=== PATIENT | male | born 1960 | race Two or more races ===

== ENCOUNTER 2023-04-14 19:37 | Inpatient (IN) | payer MEDICAID, OTHER ==
[~2023-04-14] VITALS: Ht 177.8 cm; Wt 81.6 kg
[2023-04-14] MEDS: IPRATROPIUM NEB FS 0.5 MG/2.5 ML AMPUL.NEB NEB ONE ×2 (19:57→20:26)
[2023-04-14] MEDS: ALBUTEROL FS 2.5 MG/3 ML VIAL.NEB CONTNEB ONE ×2 (19:57→20:26)
[2023-04-14] MEDS ORDERED: IV NS 0.9% 1,000 ML BAG IV ONE ×2 (20:00→21:00)
[2023-04-14] MEDS ORDERED: VANCOMYCIN 1 GM in IV D5W 250 ML IV ONE (20:00)
[2023-04-14] MEDS ORDERED: methylPREDNISolone SOD SUCC 125 MG/2ML VIAL IV ONE (20:00)
[2023-04-14] MEDS ORDERED: PIPERACILLIN /TAZOBACTAM 3.375 G in IV D5W 50 ML IV ONE (20:00)
[2023-04-14] MEDS ORDERED: methylPREDNISolone SOD SUCC 125 MG/2ML VIAL ONE (20:00)
[2023-04-14] MEDS ORDERED: VANCOMYCIN 1 GM /D5W 250 ML PB IV ONE (20:01)
[2023-04-14] MEDS ORDERED: PIPERACI/TAZO 3.375GM/D5W 50ML PB IV ONE (20:01)
[2023-04-14 20:16] LABS: ABG BASE EXCESS 5.9 mmol/L; ABG OXYGEN SATURATION 84.7 % (92.0-98.5); ABG PCO2 44.5 mmHg (35.0-45.0); ABG PH 7.455 (7.350-7.450); ABG PO2 50.8 mmHg (75.0-100.0); ABG TOTAL HEMOGLOBIN 12.2 G/dL (13.5-18.0); AaDO2 609.3 mmHg; COHb 0.4 % (0.5-1.5); MetHb 0.2 % (0.0-1.5); O2Hb 84.2 % (94.0-97.0); SITE, ABG Right Radial
[2023-04-14] MEDS ORDERED: ALBUTEROL FS 2.5 MG/3 ML VIAL.NEB ONE (20:20)
[2023-04-14] MEDS ORDERED: IPRATROPIUM NEB FS 0.5 MG/2.5 ML AMPUL.NEB ONE (20:20)
[2023-04-14 20:25] VITALS: O2SAT 81
[2023-04-14] MEDS ORDERED: ACETAMINOPHEN 650 MG/SUPP.RECT RC ONE ×2 (20:30→20:32)
[2023-04-14 20:36] LABS: BASOPHILS % (AUTO) 0.2 % (0.0-2.0); HEMATOCRIT 34 % (39-51); HEMOGLOBIN 11.2 g/dL (13.5-17.5); LYMPHOCYTES # (AUTO) 0.7 K/uL (0.8-4.8); LYMPHOCYTES % (AUTO) 9.1 % (20.0-44.0); MEAN CORPUSCULAR HEMOGLOBIN 32 PG (26.0-33.0); MEAN CORPUSCULAR HGB CONC 33 g/dl (31.0-36.0); MEAN CORPUSCULAR VOLUME 96 fL (80-96); MONOCYTES # (AUTO) 0.7 K/uL (0.1-1.30); MONOCYTES % (AUTO) 8.2 % (2.0-12.0); NEUTROPHILS # (AUTO) 6.6 K/uL (1.8-8.9); NEUTROPHILS % (AUTO) 82.5 % (43.0-81.0); PLATELET COUNT (AUTO) 185 K/uL (150-450); RED BLOOD CELL COUNT(AUTO) 3.52 MIL/uL (4.5-6.0); RED CELL DISTRIBUTION WIDTH 14.6 % (11.5-15.0)
[2023-04-14 20:38] LABS: APPEARANCE,URINE CLEAR (CLEAR); BILIRUBIN,URINE NEGATIVE (NEGATIVE); BLOOD, URINE NEGATIVE Ery/uL (NEGATIVE); COLOR,URINE ORANGE (YELLOW); KETONES,URINE NEGATIVE (NEGATIVE); LEUKOCYTE ESTERASE ,URINE NEGATIVE (NEGATIVE); NITRITE, URINE NEGATIVE (NEGATIVE); PH,URINE 6.5 (5.0-8.0); PROTEIN,URINE TRACE mg/dl (NEGATIVE); UGLUCOSE NEGATIVE (NEGATIVE)
[2023-04-14 20:51] LABS: INR 1.19 (0.91-1.10); PARTIAL THROMBOPLASTIN TIME 28.1 SEC (24.3-34.3); PROTHROMBIN TIME 12.4 SECS (9.2-11.1)
[2023-04-14 20:55] LABS: CALCIUM, SERUM 8.5 mg/dL (8.5-10.1); CARBON DIOXIDE 29 mmol/L (21-32); CHLORIDE 100 mmol/L (98-107); CREATININE 0.6 mg/dL (0.6-1.3); GLUCOSE 128 mg/dL (74-106); POTASSIUM 4.3 mmol/L (3.5-5.1); SODIUM SERUM 135 mmol/L (136-145); UREA NITROGEN, BLOOD 16 mg/dL (7-18)
[2023-04-14 20:58] LABS: ADD URINE CULTURE NO; BACTERIA,URINE None seen /HPF (None Seen); MUCUS,URINE Moderate /LPF (None Seen); RBC,URINE NONE SEEN /HPF (0-2); SQUAMOUS EPITHELIAL CELL,UR 0-2 /HPF (None Seen); WBC,URINE NONE SEEN /HPF (0-3)
[2023-04-14 21:02] LABS: ALANINE AMINOTRANSFERASE 35 U/L (12-78); ALBUMIN 1.6 g/dL (3.4-5.0); ALKALINE PHOSPHATASE 106 U/L (46-116); ASPARTATE AMINOTRANSFERASE 42 U/L (15-37); BILIRUBIN,DIRECT 0.3 mg/dL (0.0-0.2); BILIRUBIN,TOTAL 0.7 mg/dL (0.2-1.0); TOTAL PROTEIN, SERUM 8.6 g/dL (6.4-8.2)
[2023-04-14 21:05] LABS: LACTIC ACID 1.5 mmol/L (0.4-2.0)
[2023-04-14 21:25] VITALS: O2SAT 95
[2023-04-14 22:23] LABS: ABG BASE EXCESS 3.6 mmol/L; ABG OXYGEN SATURATION 96.4 % (92.0-98.5); ABG PCO2 55.7 mmHg (35.0-45.0); ABG PH 7.353 (7.350-7.450); COHb 0.3 % (0.5-1.5); MetHb 0.5 % (0.0-1.5); O2Hb 95.6 % (94.0-97.0); SITE, ABG Right Radial
[2023-04-14] MEDS ORDERED: ONDANSETRON HCL/PF 4 MG/2 ML VIAL IVP PRN (23:30)
[2023-04-14] MEDS ORDERED: ACETAMINOPHEN 325 MG TABLET PO PRN (23:30)
[2023-04-14] MEDS ORDERED: ACETAMINOPHEN 650 MG/SUPP.RECT RC PRN (23:30)
[2023-04-15] VITALS (14 sets, daily range): BP systolic 98–115; BP diastolic 57–72; TEMP 97.7–98.2; O2SAT 87–99
[2023-04-15] MEDS: ENOXAPARIN SODIUM 40 MG/0.4 ML DISP.SYRIN SQ SCH ×2 (00:30→21:28)
[2023-04-15] MEDS: IV NS 0.9% 1,000 ML IV PRN (00:31)
[2023-04-15] MEDS: ALBUTEROL HALF STRENGTH 1.25 MG/3 ML VIAL.NEB NEB SCH ×6 (00:41→20:06)
[2023-04-15] MEDS: IPRATROPIUM NEB FS 0.5 MG/2.5 ML AMPUL.NEB NEB SCH ×6 (00:41→20:06)
[2023-04-15] MEDS ORDERED: ZOSYN IVPB 3.375 G in IV D5W 50ml IV ONE (03:00)
[2023-04-15] MEDS ORDERED: PIPERACI/TAZO 3.375GM/D5W 50ML PB IV ONE (03:42)
[2023-04-15] MEDS ORDERED: methylPREDNISolone SOD SUCC 40 MG/ML VIAL ONE (04:54)
[2023-04-15] MEDS: methylPREDNISolone SOD SUCC 40 MG/ML VIAL IV SCH ×3 (04:57→21:25)
[2023-04-15 07:04] LABS: BASOPHILS % (AUTO) 0.1 % (0.0-2.0); HEMATOCRIT 32 % (39-51); HEMOGLOBIN 10.4 g/dL (13.5-17.5); LYMPHOCYTES # (AUTO) 0.5 K/uL (0.8-4.8); LYMPHOCYTES % (AUTO) 9.6 % (20.0-44.0); MEAN CORPUSCULAR HEMOGLOBIN 32 PG (26.0-33.0); MEAN CORPUSCULAR HGB CONC 33 g/dl (31.0-36.0); MEAN CORPUSCULAR VOLUME 99 fL (80-96); MONOCYTES # (AUTO) 0.1 K/uL (0.1-1.30); MONOCYTES % (AUTO) 1.9 % (2.0-12.0); NEUTROPHILS # (AUTO) 4.3 K/uL (1.8-8.9); NEUTROPHILS % (AUTO) 88.4 % (43.0-81.0); PLATELET COUNT (AUTO) 151 K/uL (150-450); RED BLOOD CELL COUNT(AUTO) 3.21 MIL/uL (4.5-6.0); RED CELL DISTRIBUTION WIDTH 14.6 % (11.5-15.0); WHITE BLOOD COUNT (AUTO) 4.8 K/uL (4.3-11.0)
[2023-04-15 07:38] LABS: CALCIUM, SERUM 8.6 mg/dL (8.5-10.1); CREATININE 0.5 mg/dL (0.6-1.3); MAGNESIUM 2.5 mg/dL (1.8-2.4); PHOSPHORUS 4.4 mg/dL (2.5-4.9); POTASSIUM 4.1 mmol/L (3.5-5.1)
[2023-04-15] MEDS ORDERED: LIDO700A30 TP (08:03)
[2023-04-15] MEDS ORDERED: HYDR-4075 GT (08:03)
[2023-04-15] MEDS ORDERED: SENN-261 GT (08:03)
[2023-04-15] MEDS ORDERED: MAGN400O6 GT (08:03)
[2023-04-15] MEDS ORDERED: BISA10SU11 RC (08:03)
[2023-04-15] MEDS ORDERED: AMOX1TAB16 GT (08:03)
[2023-04-15] MEDS ORDERED: GABA-532 GT (08:03)
[2023-04-15] MEDS ORDERED: ACET-2605 GT (08:03)
[2023-04-15] MEDS ORDERED: FURO40TA5 GT (08:03)
[2023-04-15] MEDS ORDERED: MULT-447 GT (08:03)
[2023-04-15] MEDS ORDERED: RISP0.2515 GT (08:03)
[2023-04-15] MEDS ORDERED: ACET-868 GT (08:03)
[2023-04-15] MEDS ORDERED: LACT-96 GT (08:03)
[2023-04-15] MEDS ORDERED: ASPI-1169 GT (08:03)
[2023-04-15] MEDS ORDERED: NA P133E RC (08:03)
[2023-04-15] MEDS ORDERED: HEPA50007 SQ (08:03)
[2023-04-15] MEDS: VANCOMYCIN 0.75 GM in IV D5W 250 ML IV SCH ×3 (08:34→23:53)
[2023-04-15] MEDS: PIPERACILLIN /TAZOBACTAM 3.375 G in IV D5W 100 ML IV SCH ×2 (10:27→18:32)
[2023-04-15] MEDS ORDERED: NA PHOS,M-B/NA PHOS,DI-BA 1 EA ENEMA RC PRN (12:00)
[2023-04-15] MEDS: JEVITY 1.2 CAL 1,000 ML BOTTLE GT PRN ×2 (15:29→16:00)
[2023-04-15] MEDS: GABAPENTIN 100 MG CAPSULE GT SCH (16:34)
[2023-04-15] MEDS: FUROSEMIDE 40 MG TABLET GT SCH (16:34)
[2023-04-15] MEDS: risperiDONE 1 MG TABLET PO SCH (16:34)
[2023-04-16] VITALS (18 sets, daily range): BP systolic 98–113; BP diastolic 57–78; TEMP 96.9–98.5; O2SAT 93–100
[2023-04-16] MEDS: IPRATROPIUM NEB FS 0.5 MG/2.5 ML AMPUL.NEB NEB SCH ×6 (01:06→20:30)
[2023-04-16] MEDS: ALBUTEROL HALF STRENGTH 1.25 MG/3 ML VIAL.NEB NEB SCH ×6 (01:06→20:30)
[2023-04-16] MEDS ORDERED: IV NS 0.9% 250 ML IV PRN (02:00)
[2023-04-16] MEDS: PIPERACILLIN /TAZOBACTAM 3.375 G in IV D5W 100 ML IV SCH ×3 (02:15→17:24)
[2023-04-16] MEDS: methylPREDNISolone SOD SUCC 40 MG/ML VIAL IV SCH ×3 (05:20→21:02)
[2023-04-16 07:16] LABS: CREATININE 0.6 mg/dL (0.6-1.3); POTASSIUM 3.8 mmol/L (3.5-5.1)
[2023-04-16] MEDS: IV NS 0.9% 1,000 ML IV PRN (09:00)
[2023-04-16] MEDS: VANCOMYCIN 0.75 GM in IV D5W 250 ML IV SCH ×2 (09:00→15:36)
[2023-04-16] MEDS: risperiDONE 1 MG TABLET PO SCH ×2 (09:11→16:18)
[2023-04-16] MEDS: FUROSEMIDE 40 MG TABLET GT SCH ×2 (09:11→16:18)
[2023-04-16] MEDS: GABAPENTIN 100 MG CAPSULE GT SCH ×2 (09:11→16:18)
[2023-04-16] MEDS: ASPIRIN 81 MG TAB.CHEW GT SCH (09:11)
[2023-04-16] MEDS: PROSOURCE / PROSTAT (PYXIS) 30 ML UDC GT SCH (09:13)
[2023-04-16] MEDS: JEVITY 1.2 CAL 1,000 ML BOTTLE GT PRN (13:41)
[2023-04-16] MEDS: MUPIROCIN OINT 2% 22 GM TUBE NS SCH (21:02)
[2023-04-16] MEDS: ENOXAPARIN SODIUM 40 MG/0.4 ML DISP.SYRIN SQ SCH (21:03)
[2023-04-17] VITALS (18 sets, daily range): BP systolic 92–130; BP diastolic 55–67; TEMP 97.1–98.5; O2SAT 93–100
[2023-04-17] MEDS: IPRATROPIUM NEB FS 0.5 MG/2.5 ML AMPUL.NEB NEB SCH ×6 (00:04→20:03)
[2023-04-17] MEDS: ALBUTEROL HALF STRENGTH 1.25 MG/3 ML VIAL.NEB NEB SCH ×6 (00:04→20:03)
[2023-04-17] MEDS: VANCOMYCIN 0.75 GM in IV D5W 250 ML IV SCH ×4 (00:22→23:54)
[2023-04-17] MEDS: IV NS 0.9% 1,000 ML IV PRN ×2 (00:23→23:59)
[2023-04-17] MEDS: PIPERACILLIN /TAZOBACTAM 3.375 G in IV D5W 100 ML IV SCH ×3 (02:18→17:38)
[2023-04-17 06:28] LABS: CALCIUM, SERUM 8.4 mg/dL (8.5-10.1); CREATININE 0.5 mg/dL (0.6-1.3); POTASSIUM 3.1 mmol/L (3.5-5.1)
[2023-04-17] MEDS: methylPREDNISolone SOD SUCC 40 MG/ML VIAL IV SCH (09:00)
[2023-04-17] MEDS: FUROSEMIDE 40 MG TABLET GT SCH ×2 (09:01→17:22)
[2023-04-17] MEDS: risperiDONE 1 MG TABLET PO SCH ×2 (09:01→17:22)
[2023-04-17] MEDS: ASPIRIN 81 MG TAB.CHEW GT SCH (09:01)
[2023-04-17] MEDS: GABAPENTIN 100 MG CAPSULE GT SCH ×2 (09:01→17:22)
[2023-04-17] MEDS: PROSOURCE / PROSTAT (PYXIS) 30 ML UDC GT SCH (09:04)
[2023-04-17] MEDS: JEVITY 1.2 CAL 1,000 ML BOTTLE GT PRN (09:06)
[2023-04-17] MEDS: MUPIROCIN OINT 2% 22 GM TUBE NS SCH ×2 (09:06→21:09)
[2023-04-17] MEDS ORDERED: methylPREDNISolone SOD SUCC 40 MG/ML VIAL IV SCH (09:30)
[2023-04-17] MEDS ORDERED: POTASSIUM CHLORIDE 20 MEQ POWDER PACKET GT ONE (10:00)
[2023-04-17] MEDS: ENOXAPARIN SODIUM 40 MG/0.4 ML DISP.SYRIN SQ SCH (21:07)
[2023-04-18] VITALS (10 sets, daily range): BP systolic 107–115; BP diastolic 61–69; TEMP 98.2–98.4; O2SAT 95–98
[2023-04-18] MEDS: ALBUTEROL HALF STRENGTH 1.25 MG/3 ML VIAL.NEB NEB SCH ×4 (00:04→12:23)
[2023-04-18] MEDS: IPRATROPIUM NEB FS 0.5 MG/2.5 ML AMPUL.NEB NEB SCH ×4 (00:04→12:23)
[2023-04-18] MEDS: PIPERACILLIN /TAZOBACTAM 3.375 G in IV D5W 100 ML IV SCH ×2 (02:16→09:43)
[2023-04-18 06:19] LABS: CALCIUM, SERUM 8.6 mg/dL (8.5-10.1); CREATININE 0.6 mg/dL (0.6-1.3); POTASSIUM 3.4 mmol/L (3.5-5.1)
[2023-04-18] MEDS: VANCOMYCIN 0.75 GM in IV D5W 250 ML IV SCH (08:03)
[2023-04-18] MEDS: MUPIROCIN OINT 2% 22 GM TUBE NS SCH (08:19)
[2023-04-18] MEDS: PROSOURCE / PROSTAT (PYXIS) 30 ML UDC GT SCH (08:19)
[2023-04-18] MEDS: GABAPENTIN 100 MG CAPSULE GT SCH (08:26)
[2023-04-18] MEDS: FUROSEMIDE 40 MG TABLET GT SCH (08:26)
[2023-04-18] MEDS: risperiDONE 1 MG TABLET PO SCH (08:26)
[2023-04-18] MEDS: ASPIRIN 81 MG TAB.CHEW GT SCH (08:27)
[2023-04-18] MEDS ORDERED: predniSONE 20 MG TABLET GT SCH (09:00)
[2023-04-18] MEDS ORDERED: PRED20TA GT (09:37)
[2023-04-18] MEDS ORDERED: LEVO750T46 PO (09:37)
[2023-04-18] MEDS ORDERED: POTASSIUM CHLORIDE 20 MEQ POWDER PACKET NG SCH (11:00)
== END 2023-04-18 13:51 | DRG 720 ==
LOC: ER 19:39 → TELE-TD 23:13 → TELE1 04-15 07:12 → TELE-TD 04-15 13:35 → TELE1 04-16 13:18
PROVIDERS: ADMIT Nurse Practitioner Acute Care; ATTEND Internal Medicine
DX: A41.9 Sepsis, unspecified organism (principal); J69.0 Pneumonitis due to inhalation of food and vomit; G93.41 Metabolic encephalopathy; E43 Unspecified severe protein-calorie malnutrition; J15.6 Pneumonia due to other Gram-negative bacteria; J96.01 Acute respiratory failure with hypoxia; J96.02 Acute respiratory failure with hypercapnia; R53.2 Functional quadriplegia; D68.69 Other thrombophilia; J44.0 Chronic obstructive pulmonary disease with (acute) lower respiratory infection; J44.1 Chronic obstructive pulmonary disease with (acute) exacerbation; D64.9 Anemia, unspecified; E66.9 Obesity, unspecified; E87.1 Hypo-osmolality and hyponatremia; E88.09 Other disorders of plasma-protein metabolism, not elsewhere classified; F20.9 Schizophrenia, unspecified; I10 Essential (primary) hypertension; R13.10 Dysphagia, unspecified; R65.20 Severe sepsis without septic shock; Z93.1 Gastrostomy status; Z22.322 Carrier or suspected carrier of Methicillin resistant Staphylococcus aureus; Z20.822 Contact with and (suspected) exposure to COVID-19
CPT/HCPCS: 31720; 36415; 36600; 70450-TC; 71045-TC; 80048-TC; 80061-TC; 80076-TC; 80202-TC; 81001; 82803-TC; 83605-TC; 83735-TC; 84100-TC; 84484-TC; 85025-TC; 85730-TC; 87040-TC; 87081-TC; 87086-TC; 94762-TC; 94799-TC; A4223; C9803; G0378; J1650; J2543; J2920; J2930; J3370; J7030; J7050; J7060

== ENCOUNTER 2023-04-20 20:41 | Inpatient (IN) | payer MEDICAID ==
[~2023-04-20] VITALS: Ht 182.9 cm; Wt 69.9 kg
[~2023-04-20 20:41] MED LIST: ACET-2605 GT; ACET-868 GT; ASPI-1169 GT; BISA10SU11 RC; FURO40TA5 GT; GABA-532 GT; HEPA50007 SQ; HYDR-4075 GT; LACT-96 GT; LEVO750T46 PO; LIDO700A30 TP; MAGN400O6 GT; MULT-447 GT; NA P133E RC; PRED20TA GT; RISP0.2515 GT; SENN-261 GT
[2023-04-20] MEDS ORDERED: VANCOMYCIN 1 GM in IV D5W 250 ML IV ONE (21:00)
[2023-04-20] MEDS ORDERED: IV LR 1000 ML 1,000 ML BAG IV ONE (21:00)
[2023-04-20] MEDS ORDERED: CEFTRIAXONE 1GM BAG (ER ONLY) 1 GM/50 ML PIGGYBACK IV ONE (21:00)
[2023-04-20 21:10] LABS: BASOPHILS # (AUTO) 0.1 K/uL (0.0-0.2); BASOPHILS % (AUTO) 0.5 % (0.0-2.0); EOSINOPHILS # (AUTO) 0.1 K/uL (0.0-0.7); EOSINOPHILS % (AUTO) 0.5 % (0.0-6.0); HEMATOCRIT 42 % (39-51); HEMOGLOBIN 14.1 g/dL (13.5-17.5); LYMPHOCYTES # (AUTO) 1.2 K/uL (0.8-4.8); LYMPHOCYTES % (AUTO) 9.6 % (20.0-44.0); MEAN CORPUSCULAR HEMOGLOBIN 33 PG (26.0-33.0); MEAN CORPUSCULAR HGB CONC 34 g/dl (31.0-36.0); MEAN CORPUSCULAR VOLUME 98 fL (80-96); MONOCYTES # (AUTO) 0.3 K/uL (0.1-1.30); MONOCYTES % (AUTO) 2.3 % (2.0-12.0); NEUTROPHILS # (AUTO) 10.6 K/uL (1.8-8.9); NEUTROPHILS % (AUTO) 87.1 % (43.0-81.0); PLATELET COUNT (AUTO) 302 K/uL (150-450); RED CELL DISTRIBUTION WIDTH 15.3 % (11.5-15.0); WHITE BLOOD COUNT (AUTO) 12.2 K/uL (4.3-11.0)
[2023-04-20] MEDS ORDERED: VANCOMYCIN 1 GM /D5W 250 ML PB IV ONE (21:18)
[2023-04-20] MEDS ORDERED: CEFTRIAXONE 1 G VIAL ONE (21:19)
[2023-04-20 21:25] LABS: CALCIUM, SERUM 8.7 mg/dL (8.5-10.1); CARBON DIOXIDE 29 mmol/L (21-32); CHLORIDE 101 mmol/L (98-107); CREATININE 0.7 mg/dL (0.6-1.3); GLUCOSE 131 mg/dL (74-106); POTASSIUM 4.2 mmol/L (3.5-5.1); SODIUM SERUM 135 mmol/L (136-145); UREA NITROGEN, BLOOD 18 mg/dL (7-18)
[2023-04-20 21:31] LABS: INR 1.21 (0.91-1.10); PARTIAL THROMBOPLASTIN TIME 27.9 SEC (24.3-34.3); PROTHROMBIN TIME 12.6 SECS (9.2-11.1)
[2023-04-20 21:37] LABS: ALANINE AMINOTRANSFERASE 104 U/L (12-78); ALBUMIN 1.9 g/dL (3.4-5.0); ALKALINE PHOSPHATASE 124 U/L (46-116); ASPARTATE AMINOTRANSFERASE 46 U/L (15-37); BILIRUBIN,DIRECT 0.2 mg/dL (0.0-0.2); BILIRUBIN,TOTAL 0.6 mg/dL (0.2-1.0); NT-PRO BNP 212 pg/mL (0-125)
[2023-04-20] MEDS ORDERED: IOHEXOL-350 100 ML VIAL IV ONE (21:47)
[2023-04-20] MEDS ORDERED: IV NS 0.9% 250 ML IV ONE (21:47)
[2023-04-20] MEDS ORDERED: MIDAZOLAM 50 MG/10 ML VIAL ONE (21:58)
[2023-04-20] MEDS ORDERED: MIDAZOLAM HCL 100 MG in IV NS 0.9% 80 ML IV PRN (22:00)
[2023-04-20] MEDS ORDERED: ETOMIDATE 2 MG/ML VIAL IV ONE (22:00)
[2023-04-20] MEDS ORDERED: SUCCINYLCHOLINE CHLORIDE 20 MG/ML VIAL IV ONE (22:00)
[2023-04-20] MEDS ORDERED: FENTANYL CITRAT IV 2,500 MCG in IV NS 0.9% 200 ML IV PRN (22:00)
[2023-04-20 22:18] LABS: ABG BASE EXCESS 3.7 mmol/L; ABG OXYGEN SATURATION 97.1 % (92.0-98.5); ABG PCO2 40.3 mmHg (35.0-45.0); ABG PH 7.457 (7.350-7.450); ABG PO2 95.1 mmHg (75.0-100.0); ABG TOTAL HEMOGLOBIN 14.1 G/dL (13.5-18.0); COHb 0.3 % (0.5-1.5); MetHb 0.4 % (0.0-1.5); O2Hb 96.4 % (94.0-97.0); PEEP,BG 5 cm H2O; SITE, ABG Right Radial; VENT MODE, BG AC 20 500 100% +5; VT, ABG 500 mL
[2023-04-20 22:23] LABS: APPEARANCE,URINE CLEAR (CLEAR); BILIRUBIN,URINE NEGATIVE (NEGATIVE); BLOOD, URINE NEGATIVE Ery/uL (NEGATIVE); COLOR,URINE YELLOW (YELLOW); KETONES,URINE NEGATIVE (NEGATIVE); LEUKOCYTE ESTERASE ,URINE NEGATIVE (NEGATIVE); NITRITE, URINE NEGATIVE (NEGATIVE); PROTEIN,URINE NEGATIVE (NEGATIVE); UGLUCOSE NEGATIVE (NEGATIVE)
[2023-04-20] MEDS ORDERED: JEVITY 1.2 CAL 1,000 ML BOTTLE GT PRN (23:30)
[2023-04-20] MEDS ORDERED: ONDANSETRON HCL/PF 4 MG/2 ML VIAL IVP PRN (23:30)
[2023-04-20] MEDS ORDERED: IV NS 0.9% 1,000 ML IV PRN (23:30)
[2023-04-20] MEDS ORDERED: ACETAMINOPHEN 325 MG TABLET PO PRN (23:30)
[2023-04-20] MEDS ORDERED: hydrALAZINE HCL 10 MG TABLET GT PRN (23:30)
[2023-04-21] VITALS (38 sets, daily range): BP systolic 82–122; BP diastolic 61–90; TEMP 97.9–100; O2SAT 95–100
[2023-04-21] MEDS: ENOXAPARIN SODIUM 40 MG/0.4 ML DISP.SYRIN SQ SCH ×2 (00:08→21:17)
[2023-04-21] MEDS: PROPOFOL 100 ML IV PRN ×2 (00:08→10:17)
[2023-04-21 07:17] LABS: BASOPHILS % (AUTO) 0.3 % (0.0-2.0); EOSINOPHILS % (AUTO) 0.4 % (0.0-6.0); HEMATOCRIT 38 % (39-51); HEMOGLOBIN 12.4 g/dL (13.5-17.5); LYMPHOCYTES # (AUTO) 1.3 K/uL (0.8-4.8); LYMPHOCYTES % (AUTO) 12.9 % (20.0-44.0); MEAN CORPUSCULAR HEMOGLOBIN 32 PG (26.0-33.0); MEAN CORPUSCULAR HGB CONC 33 g/dl (31.0-36.0); MEAN CORPUSCULAR VOLUME 97 fL (80-96); MONOCYTES # (AUTO) 0.2 K/uL (0.1-1.30); MONOCYTES % (AUTO) 2.4 % (2.0-12.0); NEUTROPHILS # (AUTO) 8.5 K/uL (1.8-8.9); PLATELET COUNT (AUTO) 199 K/uL (150-450); RED BLOOD CELL COUNT(AUTO) 3.88 MIL/uL (4.5-6.0); RED CELL DISTRIBUTION WIDTH 15.7 % (11.5-15.0); WHITE BLOOD COUNT (AUTO) 10.1 K/uL (4.3-11.0)
[2023-04-21 07:48] LABS: CALCIUM, SERUM 7.8 mg/dL (8.5-10.1); CREATININE 0.5 mg/dL (0.6-1.3); MAGNESIUM 1.9 mg/dL (1.8-2.4); PHOSPHORUS 3.7 mg/dL (2.5-4.9); POTASSIUM 3.4 mmol/L (3.5-5.1)
[2023-04-21] MEDS: VANCOMYCIN 0.75 GM in IV D5W 250 ML IV SCH ×3 (07:49→23:41)
[2023-04-21] MEDS: PANTOPRAZOLE 40 MG VIAL IV SCH (08:27)
[2023-04-21] MEDS: GABAPENTIN 100 MG CAPSULE GT SCH ×2 (08:27→16:16)
[2023-04-21] MEDS: ASPIRIN 81 MG TAB.CHEW GT SCH (08:28)
[2023-04-21] MEDS: MULTIVITAMINS,THERAGRAN 1 UDTAB TABLET GT SCH (08:28)
[2023-04-21] MEDS ORDERED: ETOMIDATE 2 MG/ML VIAL IV ONE (08:43)
[2023-04-21] MEDS ORDERED: SUCCINYLCHOLINE CHLORIDE 20 MG/ML VIAL IV ONE (08:44)
[2023-04-21] MEDS ORDERED: POTASSIUM CHLORIDE 20 MEQ POWDER PACKET NG SCH (10:00)
[2023-04-21] MEDS ORDERED: Z GUARD REMEDY 4 OZ OINT TP PRN (10:00)
[2023-04-21] MEDS: IPRATROPIUM NEB FS 0.5 MG/2.5 ML AMPUL.NEB NEB SCH ×3 (10:30→19:53)
[2023-04-21] MEDS: ALBUTEROL HALF STRENGTH 1.25 MG/3 ML VIAL.NEB NEB SCH ×3 (10:30→19:53)
[2023-04-21] MEDS: ACETYLCYSTEINE 10% SOLN 400 MG/4 ML VIAL NEB SCH ×2 (10:30→12:43)
[2023-04-21] MEDS: Z GUARD REMEDY 4 OZ OINT TP SCH (10:44)
[2023-04-21] MEDS: methylPREDNISolone SOD SUCC 125 MG/2ML VIAL IV SCH ×2 (11:12→16:17)
[2023-04-21] MEDS ORDERED: NOREPINEPHRINE 8 MG in IV NS 0.9% 242 ML IV PRN ×4 (13:00)
[2023-04-21] MEDS ORDERED: IV D5/ 0.9% NACL 1,000 ML IV ONE (13:00)
[2023-04-21] MEDS: JEVITY 1.2 CAL 1,000 ML BOTTLE GT PRN (13:09)
[2023-04-21] MEDS: CLOTRIMAZOLE 1% 15 GM TUBE TP SCH (16:27)
[2023-04-21] MEDS: IV D5/ 0.9% NACL 1,000 ML IV PRN (19:28)
[2023-04-21] MEDS: CEFTRIAXONE 1 G in IV D5W 50 ML IV SCH (20:50)
[2023-04-21] MEDS: SENNOSIDES 8.6 MG TABLET GT SCH (21:16)
[2023-04-22] VITALS (28 sets, daily range): BP systolic 87–125; BP diastolic 65–90; TEMP 97.9–99; O2SAT 94–100
[2023-04-22] MEDS: ACETYLCYSTEINE 10% SOLN 400 MG/4 ML VIAL NEB SCH ×4 (00:03→23:53)
[2023-04-22] MEDS: IV D5/ 0.9% NACL 1,000 ML IV PRN (00:52)
[2023-04-22] MEDS: PROPOFOL 100 ML IV PRN (02:03)
[2023-04-22] MEDS: IPRATROPIUM NEB FS 0.5 MG/2.5 ML AMPUL.NEB NEB SCH ×4 (02:13→19:37)
[2023-04-22] MEDS: ALBUTEROL HALF STRENGTH 1.25 MG/3 ML VIAL.NEB NEB SCH ×4 (02:13→19:37)
[2023-04-22 05:17] LABS: BASOPHILS % (AUTO) 0.1 % (0.0-2.0); HEMATOCRIT 35 % (39-51); HEMOGLOBIN 11.3 g/dL (13.5-17.5); LYMPHOCYTES # (AUTO) 0.4 K/uL (0.8-4.8); LYMPHOCYTES % (AUTO) 6.5 % (20.0-44.0); MEAN CORPUSCULAR HEMOGLOBIN 32 PG (26.0-33.0); MEAN CORPUSCULAR HGB CONC 33 g/dl (31.0-36.0); MEAN CORPUSCULAR VOLUME 98 fL (80-96); MONOCYTES # (AUTO) 0.2 K/uL (0.1-1.30); MONOCYTES % (AUTO) 2.9 % (2.0-12.0); NEUTROPHILS # (AUTO) 5.2 K/uL (1.8-8.9); NEUTROPHILS % (AUTO) 90.5 % (43.0-81.0); PLATELET COUNT (AUTO) 169 K/uL (150-450); RED BLOOD CELL COUNT(AUTO) 3.53 MIL/uL (4.5-6.0); RED CELL DISTRIBUTION WIDTH 15.2 % (11.5-15.0); WHITE BLOOD COUNT (AUTO) 5.8 K/uL (4.3-11.0)
[2023-04-22 05:48] LABS: ALBUMIN 1.5 g/dL (3.4-5.0); BILIRUBIN,TOTAL 0.5 mg/dL (0.2-1.0); CALCIUM, SERUM 7.9 mg/dL (8.5-10.1); CREATININE 0.5 mg/dL (0.6-1.3); MAGNESIUM 2.4 mg/dL (1.8-2.4); POTASSIUM 3.8 mmol/L (3.5-5.1); TOTAL PROTEIN, SERUM 6.6 g/dL (6.4-8.2)
[2023-04-22] MEDS: VANCOMYCIN 0.75 GM in IV D5W 250 ML IV SCH ×2 (07:49→19:55)
[2023-04-22] MEDS: MULTIVITAMINS,THERAGRAN 1 UDTAB TABLET GT SCH (08:02)
[2023-04-22] MEDS: GABAPENTIN 100 MG CAPSULE GT SCH ×2 (08:02→16:43)
[2023-04-22] MEDS: PANTOPRAZOLE 40 MG VIAL IV SCH (08:02)
[2023-04-22] MEDS: ASPIRIN 81 MG TAB.CHEW GT SCH (08:02)
[2023-04-22] MEDS: methylPREDNISolone SOD SUCC 125 MG/2ML VIAL IV SCH ×2 (08:02→16:43)
[2023-04-22] MEDS: CLOTRIMAZOLE 1% 15 GM TUBE TP SCH ×2 (08:03→16:43)
[2023-04-22] MEDS: Z GUARD REMEDY 4 OZ OINT TP SCH (08:04)
[2023-04-22] MEDS ORDERED: DC PROPOFOL WHEN EXTUBATED XX PRN (09:00)
[2023-04-22 09:19] LABS: ABG BASE EXCESS 1.2 mmol/L; ABG OXYGEN SATURATION 98.1 % (92.0-98.5); ABG PCO2 35.4 mmHg (35.0-45.0); ABG PH 7.462 (7.350-7.450); ABG PO2 111.8 mmHg (75.0-100.0); ABG TOTAL HEMOGLOBIN 11.8 G/dL (13.5-18.0); AaDO2 132.7 mmHg; COHb 0.2 % (0.5-1.5); MetHb 0.4 % (0.0-1.5); O2Hb 97.5 % (94.0-97.0); PEEP,BG 5 cm H2O; SITE, ABG Right Radial; VT, ABG 500 mL
[2023-04-22] MEDS: IV NS 0.9% 1,000 ML IV PRN (10:12)
[2023-04-22] MEDS: CEFTRIAXONE 1 G in IV D5W 50 ML IV SCH (20:28)
[2023-04-22] MEDS: ENOXAPARIN SODIUM 40 MG/0.4 ML DISP.SYRIN SQ SCH (20:37)
[2023-04-22] MEDS: SENNOSIDES 8.6 MG TABLET GT SCH (20:39)
[2023-04-23] VITALS (25 sets, daily range): BP systolic 92–152; BP diastolic 55–92; TEMP 98.1–98.4; O2SAT 94–100
[2023-04-23] MEDS: IPRATROPIUM NEB FS 0.5 MG/2.5 ML AMPUL.NEB NEB SCH ×4 (01:24→20:12)
[2023-04-23] MEDS: ALBUTEROL HALF STRENGTH 1.25 MG/3 ML VIAL.NEB NEB SCH ×4 (01:24→20:12)
[2023-04-23] MEDS: JEVITY 1.2 CAL 1,000 ML BOTTLE GT PRN ×2 (02:14→23:03)
[2023-04-23 05:52] LABS: HEMATOCRIT 31 % (39-51); HEMOGLOBIN 10.1 g/dL (13.5-17.5); LYMPHOCYTES # (AUTO) 0.5 K/uL (0.8-4.8); LYMPHOCYTES % (AUTO) 9.8 % (20.0-44.0); MEAN CORPUSCULAR HEMOGLOBIN 32 PG (26.0-33.0); MEAN CORPUSCULAR HGB CONC 33 g/dl (31.0-36.0); MEAN CORPUSCULAR VOLUME 97 fL (80-96); MONOCYTES # (AUTO) 0.3 K/uL (0.1-1.30); MONOCYTES % (AUTO) 5.8 % (2.0-12.0); NEUTROPHILS # (AUTO) 4.4 K/uL (1.8-8.9); NEUTROPHILS % (AUTO) 84.4 % (43.0-81.0); PLATELET COUNT (AUTO) 162 K/uL (150-450); RED BLOOD CELL COUNT(AUTO) 3.14 MIL/uL (4.5-6.0); RED CELL DISTRIBUTION WIDTH 15.3 % (11.5-15.0); WHITE BLOOD COUNT (AUTO) 5.2 K/uL (4.3-11.0)
[2023-04-23 06:05] LABS: BILIRUBIN,TOTAL 0.3 mg/dL (0.2-1.0); CALCIUM, SERUM 7.9 mg/dL (8.5-10.1); CREATININE 0.4 mg/dL (0.6-1.3); MAGNESIUM 2.1 mg/dL (1.8-2.4); PHOSPHORUS 2.7 mg/dL (2.5-4.9); POTASSIUM 3.8 mmol/L (3.5-5.1); TOTAL PROTEIN, SERUM 5.8 g/dL (6.4-8.2)
[2023-04-23 06:06] LABS: ALBUMIN 1.4 g/dL (3.4-5.0)
[2023-04-23] MEDS: ACETYLCYSTEINE 10% SOLN 400 MG/4 ML VIAL NEB SCH (07:44)
[2023-04-23] MEDS: IV NS 0.9% 1,000 ML IV PRN (07:45)
[2023-04-23] MEDS: VANCOMYCIN 0.75 GM in IV D5W 250 ML IV SCH ×2 (07:57→20:20)
[2023-04-23] MEDS: GABAPENTIN 100 MG CAPSULE GT SCH ×2 (08:38→17:31)
[2023-04-23] MEDS: methylPREDNISolone SOD SUCC 125 MG/2ML VIAL IV SCH ×2 (08:38→17:31)
[2023-04-23] MEDS: CLOTRIMAZOLE 1% 15 GM TUBE TP SCH ×2 (08:39→17:34)
[2023-04-23] MEDS: PANTOPRAZOLE 40 MG/PACK PACK NG SCH (08:39)
[2023-04-23] MEDS: ASPIRIN 81 MG TAB.CHEW GT SCH (08:39)
[2023-04-23] MEDS: Z GUARD REMEDY 4 OZ OINT TP SCH (08:39)
[2023-04-23] MEDS: MULTIVITAMINS,THERAGRAN 1 UDTAB TABLET GT SCH (08:39)
[2023-04-23] MEDS: MUPIROCIN OINT 2% 22 GM TUBE NS SCH ×2 (12:36→21:16)
[2023-04-23] MEDS: CEFTRIAXONE 1 G in IV D5W 50 ML IV SCH (21:14)
[2023-04-23] MEDS: SENNOSIDES 8.6 MG TABLET GT SCH (21:14)
[2023-04-23] MEDS: ENOXAPARIN SODIUM 40 MG/0.4 ML DISP.SYRIN SQ SCH (21:16)
[2023-04-24] VITALS (12 sets, daily range): BP systolic 112–141; BP diastolic 42–81; TEMP 97.6–98.1; O2SAT 94–99
[2023-04-24] MEDS: IPRATROPIUM NEB FS 0.5 MG/2.5 ML AMPUL.NEB NEB SCH ×4 (00:49→19:34)
[2023-04-24] MEDS: ALBUTEROL HALF STRENGTH 1.25 MG/3 ML VIAL.NEB NEB SCH ×4 (00:49→19:34)
[2023-04-24 07:00] LABS: BASOPHILS % (AUTO) 0.1 % (0.0-2.0); HEMATOCRIT 36 % (39-51); HEMOGLOBIN 12.1 g/dL (13.5-17.5); LYMPHOCYTES # (AUTO) 0.6 K/uL (0.8-4.8); MEAN CORPUSCULAR HEMOGLOBIN 33 PG (26.0-33.0); MEAN CORPUSCULAR HGB CONC 33 g/dl (31.0-36.0); MEAN CORPUSCULAR VOLUME 98 fL (80-96); MONOCYTES # (AUTO) 0.4 K/uL (0.1-1.30); MONOCYTES % (AUTO) 8.8 % (2.0-12.0); NEUTROPHILS # (AUTO) 3.3 K/uL (1.8-8.9); NEUTROPHILS % (AUTO) 77.1 % (43.0-81.0); PLATELET COUNT (AUTO) 138 K/uL (150-450); RED BLOOD CELL COUNT(AUTO) 3.72 MIL/uL (4.5-6.0); RED CELL DISTRIBUTION WIDTH 15.1 % (11.5-15.0); WHITE BLOOD COUNT (AUTO) 4.3 K/uL (4.3-11.0)
[2023-04-24 07:35] LABS: ALBUMIN 1.7 g/dL (3.4-5.0); BILIRUBIN,TOTAL 0.3 mg/dL (0.2-1.0); CALCIUM, SERUM 8.3 mg/dL (8.5-10.1); CREATININE 0.6 mg/dL (0.6-1.3); MAGNESIUM 2.3 mg/dL (1.8-2.4); PHOSPHORUS 3.3 mg/dL (2.5-4.9); POTASSIUM 4.1 mmol/L (3.5-5.1); TOTAL PROTEIN, SERUM 6.7 g/dL (6.4-8.2)
[2023-04-24] MEDS: VANCOMYCIN 0.75 GM in IV D5W 250 ML IV SCH ×2 (08:40→20:24)
[2023-04-24] MEDS: methylPREDNISolone SOD SUCC 125 MG/2ML VIAL IV SCH (09:04)
[2023-04-24] MEDS: PANTOPRAZOLE 40 MG/PACK PACK NG SCH (09:04)
[2023-04-24] MEDS: MULTIVITAMINS,THERAGRAN 1 UDTAB TABLET GT SCH (09:04)
[2023-04-24] MEDS: ASPIRIN 81 MG TAB.CHEW GT SCH (09:04)
[2023-04-24] MEDS: GABAPENTIN 100 MG CAPSULE GT SCH ×2 (09:04→17:17)
[2023-04-24] MEDS: MUPIROCIN OINT 2% 22 GM TUBE NS SCH ×2 (09:05→21:33)
[2023-04-24] MEDS: CLOTRIMAZOLE 1% 15 GM TUBE TP SCH ×2 (09:05→17:18)
[2023-04-24] MEDS: PROSOURCE / PROSTAT (PYXIS) 30 ML UDC GT SCH (09:05)
[2023-04-24] MEDS: Z GUARD REMEDY 4 OZ OINT TP SCH (09:06)
[2023-04-24] MEDS: CEFTRIAXONE 1 G in IV D5W 50 ML IV SCH (21:31)
[2023-04-24] MEDS: SENNOSIDES 8.6 MG TABLET GT SCH (21:31)
[2023-04-24] MEDS: ENOXAPARIN SODIUM 40 MG/0.4 ML DISP.SYRIN SQ SCH (21:32)
[2023-04-25] VITALS (12 sets, daily range): BP systolic 105–114; BP diastolic 60–81; TEMP 97.2–98.3; O2SAT 93–100
[2023-04-25] MEDS: ALBUTEROL HALF STRENGTH 1.25 MG/3 ML VIAL.NEB NEB SCH ×4 (01:13→19:44)
[2023-04-25] MEDS: IPRATROPIUM NEB FS 0.5 MG/2.5 ML AMPUL.NEB NEB SCH ×4 (01:13→19:44)
[2023-04-25 07:47] LABS: CALCIUM, SERUM 8.4 mg/dL (8.5-10.1); CREATININE 0.4 mg/dL (0.6-1.3); POTASSIUM 4.6 mmol/L (3.5-5.1)
[2023-04-25] MEDS: VANCOMYCIN 0.75 GM in IV D5W 250 ML IV SCH ×2 (08:13→20:11)
[2023-04-25] MEDS: GABAPENTIN 100 MG CAPSULE GT SCH ×2 (08:14→16:12)
[2023-04-25] MEDS: PANTOPRAZOLE 40 MG/PACK PACK NG SCH (08:14)
[2023-04-25] MEDS: MULTIVITAMINS,THERAGRAN 1 UDTAB TABLET GT SCH (08:14)
[2023-04-25] MEDS: PROSOURCE / PROSTAT (PYXIS) 30 ML UDC GT SCH (08:15)
[2023-04-25] MEDS: predniSONE 20 MG TABLET PO SCH (08:15)
[2023-04-25] MEDS: ASPIRIN 81 MG TAB.CHEW GT SCH (08:15)
[2023-04-25] MEDS: MUPIROCIN OINT 2% 22 GM TUBE NS SCH ×2 (08:16→21:20)
[2023-04-25] MEDS: Z GUARD REMEDY 4 OZ OINT TP SCH (08:17)
[2023-04-25] MEDS: CLOTRIMAZOLE 1% 15 GM TUBE TP SCH ×2 (08:17→16:14)
[2023-04-25] MEDS: JEVITY 1.2 CAL 1,000 ML BOTTLE GT PRN (15:05)
[2023-04-25] MEDS ORDERED: IV NS 0.9% 250 ML IV PRN (17:30)
[2023-04-25] MEDS: CEFTRIAXONE 1 G in IV D5W 50 ML IV SCH (21:19)
[2023-04-25] MEDS: SENNOSIDES 8.6 MG TABLET GT SCH (21:19)
[2023-04-25] MEDS: ENOXAPARIN SODIUM 40 MG/0.4 ML DISP.SYRIN SQ SCH (21:21)
[2023-04-26] VITALS (14 sets, daily range): BP systolic 112–147; BP diastolic 63–85; TEMP 97.3–100.1; O2SAT 92–100
[2023-04-26] MEDS: ALBUTEROL HALF STRENGTH 1.25 MG/3 ML VIAL.NEB NEB SCH ×4 (01:44→19:58)
[2023-04-26] MEDS: IPRATROPIUM NEB FS 0.5 MG/2.5 ML AMPUL.NEB NEB SCH ×4 (01:44→19:58)
[2023-04-26 06:43] LABS: CALCIUM, SERUM 8.2 mg/dL (8.5-10.1); CREATININE 0.5 mg/dL (0.6-1.3); POTASSIUM 3.8 mmol/L (3.5-5.1)
[2023-04-26] MEDS: MULTIVITAMINS,THERAGRAN 1 UDTAB TABLET GT SCH (08:41)
[2023-04-26] MEDS: GABAPENTIN 100 MG CAPSULE GT SCH ×2 (08:41→16:52)
[2023-04-26] MEDS: PANTOPRAZOLE 40 MG/PACK PACK NG SCH (08:41)
[2023-04-26] MEDS: VANCOMYCIN 0.75 GM in IV D5W 250 ML IV SCH ×2 (08:41→19:39)
[2023-04-26] MEDS: PROSOURCE / PROSTAT (PYXIS) 30 ML UDC GT SCH (08:41)
[2023-04-26] MEDS: ASPIRIN 81 MG TAB.CHEW GT SCH (08:41)
[2023-04-26] MEDS: MUPIROCIN OINT 2% 22 GM TUBE NS SCH ×2 (08:42→21:25)
[2023-04-26] MEDS: CLOTRIMAZOLE 1% 15 GM TUBE TP SCH ×2 (08:43→17:01)
[2023-04-26] MEDS: Z GUARD REMEDY 4 OZ OINT TP SCH (08:45)
[2023-04-26] MEDS: predniSONE 20 MG TABLET PO SCH (08:45)
[2023-04-26] MEDS: JEVITY 1.2 CAL 1,000 ML BOTTLE GT PRN (11:53)
[2023-04-26] MEDS: CEFTRIAXONE 1 G in IV D5W 50 ML IV SCH (21:02)
[2023-04-26] MEDS: SENNOSIDES 8.6 MG TABLET GT SCH (21:16)
[2023-04-26] MEDS: ENOXAPARIN SODIUM 40 MG/0.4 ML DISP.SYRIN SQ SCH (21:16)
[2023-04-27] VITALS (10 sets, daily range): BP systolic 106–107; BP diastolic 63–66; TEMP 98–98.3; O2SAT 95–99
[2023-04-27] MEDS: ALBUTEROL HALF STRENGTH 1.25 MG/3 ML VIAL.NEB NEB SCH ×3 (01:24→13:29)
[2023-04-27] MEDS: IPRATROPIUM NEB FS 0.5 MG/2.5 ML AMPUL.NEB NEB SCH ×3 (01:24→13:29)
[2023-04-27] MEDS: JEVITY 1.2 CAL 1,000 ML BOTTLE GT PRN (04:42)
[2023-04-27 06:36] LABS: CALCIUM, SERUM 7.8 mg/dL (8.5-10.1); CREATININE 0.5 mg/dL (0.6-1.3)
[2023-04-27] MEDS: VANCOMYCIN 0.75 GM in IV D5W 250 ML IV SCH (07:35)
[2023-04-27] MEDS: PROSOURCE / PROSTAT (PYXIS) 30 ML UDC GT SCH (07:53)
[2023-04-27] MEDS: PANTOPRAZOLE 40 MG/PACK PACK NG SCH (08:23)
[2023-04-27] MEDS: ASPIRIN 81 MG TAB.CHEW GT SCH (08:23)
[2023-04-27] MEDS: predniSONE 20 MG TABLET PO SCH (08:23)
[2023-04-27] MEDS: MULTIVITAMINS,THERAGRAN 1 UDTAB TABLET GT SCH (08:24)
[2023-04-27] MEDS: GABAPENTIN 100 MG CAPSULE GT SCH (08:24)
[2023-04-27] MEDS: MUPIROCIN OINT 2% 22 GM TUBE NS SCH (08:25)
[2023-04-27] MEDS: CLOTRIMAZOLE 1% 15 GM TUBE TP SCH (08:26)
[2023-04-27] MEDS: Z GUARD REMEDY 4 OZ OINT TP SCH (10:36)
== END 2023-04-27 15:25 | DRG 720 ==
LOC: ER 20:42 → ICU 21:55 → TELE-TD 04-23 16:17 → TELE1 04-24 10:03
PROVIDERS: ADMIT Nurse Practitioner Acute Care
PROC: 5A1945Z Respiratory Ventilation, 24-96 Consecutive Hours (ICD-10-PCS; principal; 2023-04-20)
PROC: 0BH18EZ Insertion of Endotracheal Airway into Trachea, Via Natural or Artificial Opening Endoscopic (ICD-10-PCS; 2023-04-20)
PROC: 05H533Z Insertion of Infusion Device into Right Subclavian Vein, Percutaneous Approach (ICD-10-PCS; 2023-04-22)
PROC: B546ZZA Ultrasonography of Right Subclavian Vein, Guidance (ICD-10-PCS; 2023-04-22)
DX: A41.9 Sepsis, unspecified organism (principal); J96.01 Acute respiratory failure with hypoxia; R65.21 Severe sepsis with septic shock; G93.41 Metabolic encephalopathy; E43 Unspecified severe protein-calorie malnutrition; J15.6 Pneumonia due to other Gram-negative bacteria; D68.69 Other thrombophilia; R53.2 Functional quadriplegia; E87.1 Hypo-osmolality and hyponatremia; E88.09 Other disorders of plasma-protein metabolism, not elsewhere classified; D64.9 Anemia, unspecified; E66.9 Obesity, unspecified; F20.9 Schizophrenia, unspecified; I10 Essential (primary) hypertension; R13.10 Dysphagia, unspecified; Z79.82 Long term (current) use of aspirin; Z93.1 Gastrostomy status; J44.0 Chronic obstructive pulmonary disease with (acute) lower respiratory infection; Z20.822 Contact with and (suspected) exposure to COVID-19; F09 Unspecified mental disorder due to known physiological condition; Z68.20 Body mass index [BMI] 20.0-20.9, adult; L89.156 Pressure-induced deep tissue damage of sacral region; L89.026 Pressure-induced deep tissue damage of left elbow; F19.11 Other psychoactive substance abuse, in remission
CPT/HCPCS: 31720; 36410; 36415; 36600; 71045-TC; 80048-TC; 80053-TC; 80076-TC; 80202-TC; 82803-TC; 83605-TC; 83735-TC; 83880; 84100-TC; 84484-TC; 85025-TC; 85730-TC; 87040-TC; 87081-TC; 87086-TC; 94002-TC; 94003-TC; 94799-TC; 99082-TC; A4223; C9113; G0378; J0330; J0696; J1650; J2250; J2930; J3370; J3490; J7030; J7040; J7042; J7050; J7060; J7120; Q9967

== ENCOUNTER 2023-04-30 13:20 | Inpatient (IN) | payer MEDICAID ==
[~2023-04-30] VITALS: Ht 180.3 cm; Wt 78.5 kg
[2023-04-30] VITALS (9 sets, daily range): BP systolic 94–127; BP diastolic 63–76; TEMP 97.1; O2SAT 92–98
[~2023-04-30 13:20] MED LIST changes: -HEPA50007 SQ
[2023-04-30] MEDS ORDERED: VANCOMYCIN 1 GM in IV D5W 250 ML IV ONE (13:30)
[2023-04-30] MEDS ORDERED: IV NS 0.9% 1,000 ML BAG IV ONE ×2 (13:30→15:30)
[2023-04-30] MEDS ORDERED: PIPERACILLIN /TAZOBACTAM 3.375 G in IV D5W 50 ML IV ONE (13:30)
[2023-04-30] MEDS ORDERED: ALBU1.257 IH (13:37)
[2023-04-30] MEDS ORDERED: PANT40SU2 GT (13:37)
[2023-04-30] MEDS ORDERED: ENOX40DI SQ (13:37)
[2023-04-30] MEDS ORDERED: ZINC56.713 TP (13:37)
[2023-04-30] MEDS ORDERED: AMIN30LI2 GT (13:37)
[2023-04-30] MEDS ORDERED: CLOT15CR27 TP (13:37)
[2023-04-30 14:13] LABS: BASOPHILS # (AUTO) 0.2 K/uL (0.0-0.2); BASOPHILS % (AUTO) 1.5 % (0.0-2.0); HEMATOCRIT 43 % (39-51); HEMOGLOBIN 13.6 g/dL (13.5-17.5); LYMPHOCYTES # (AUTO) 0.8 K/uL (0.8-4.8); LYMPHOCYTES % (AUTO) 6.4 % (20.0-44.0); MEAN CORPUSCULAR HEMOGLOBIN 32 PG (26.0-33.0); MEAN CORPUSCULAR HGB CONC 32 g/dl (31.0-36.0); MEAN CORPUSCULAR VOLUME 100 fL (80-96); MONOCYTES # (AUTO) 0.4 K/uL (0.1-1.30); MONOCYTES % (AUTO) 3.2 % (2.0-12.0); NEUTROPHILS # (AUTO) 11.3 K/uL (1.8-8.9); NEUTROPHILS % (AUTO) 88.9 % (43.0-81.0); PLATELET COUNT (AUTO) 103 K/uL (150-450); RED BLOOD CELL COUNT(AUTO) 4.31 MIL/uL (4.5-6.0); RED CELL DISTRIBUTION WIDTH 16.7 % (11.5-15.0); WHITE BLOOD COUNT (AUTO) 12.7 K/uL (4.3-11.0)
[2023-04-30] MEDS ORDERED: ACETAMINOPHEN 325 MG TABLET ONE (14:27)
[2023-04-30 14:30] LABS: APPEARANCE,URINE CLEAR (CLEAR); BILIRUBIN,URINE NEGATIVE (NEGATIVE); BLOOD, URINE TRACE-INTA Ery/uL (NEGATIVE); COLOR,URINE YELLOW (YELLOW); KETONES,URINE NEGATIVE (NEGATIVE); LEUKOCYTE ESTERASE ,URINE NEGATIVE (NEGATIVE); NITRITE, URINE NEGATIVE (NEGATIVE); PH,URINE 5.5 (5.0-8.0); PROTEIN,URINE NEGATIVE (NEGATIVE); UGLUCOSE NEGATIVE (NEGATIVE)
[2023-04-30] MEDS ORDERED: ACETAMINOPHEN 325 MG TABLET PO ONE (14:30)
[2023-04-30 14:44] LABS: CALCIUM, SERUM 8.7 mg/dL (8.5-10.1); CARBON DIOXIDE 20 mmol/L (21-32); CHLORIDE 106 mmol/L (98-107); CREATININE 0.9 mg/dL (0.6-1.3); GLUCOSE 151 mg/dL (74-106); POTASSIUM 3.5 mmol/L (3.5-5.1); SODIUM SERUM 139 mmol/L (136-145); UREA NITROGEN, BLOOD 28 mg/dL (7-18)
[2023-04-30 14:52] LABS: ALANINE AMINOTRANSFERASE 155 U/L (12-78); ALBUMIN 2.1 g/dL (3.4-5.0); ALKALINE PHOSPHATASE 108 U/L (46-116); ASPARTATE AMINOTRANSFERASE 56 U/L (15-37); BILIRUBIN,DIRECT 0.6 mg/dL (0.0-0.2); BILIRUBIN,TOTAL 1.9 mg/dL (0.2-1.0); TOTAL PROTEIN, SERUM 7.3 g/dL (6.4-8.2)
[2023-04-30 14:59] LABS: LACTIC ACID 4.5 mmol/L (0.4-2.0)
[2023-04-30 15:08] LABS: INR 1.25 (0.91-1.10)
[2023-04-30] MEDS ORDERED: NA PHOS,M-B/NA PHOS,DI-BA 1 EA ENEMA RC PRN (15:30)
[2023-04-30] MEDS ORDERED: MAGNESIUM HYDROXIDE 30 ML UDC PO PRN (15:30)
[2023-04-30] MEDS ORDERED: ONDANSETRON HCL/PF 4 MG/2 ML VIAL IVP PRN (15:30)
[2023-04-30] MEDS ORDERED: ACETAMINOPHEN 325 MG TABLET PO PRN (15:30)
[2023-04-30] MEDS ORDERED: MAG HYDROX/AL HYDROX/SIMETH 30 ML UDC PO PRN (15:30)
[2023-04-30] MEDS ORDERED: Z GUARD REMEDY 4 OZ OINT TP PRN (15:30)
[2023-04-30] MEDS ORDERED: BISACODYL SUPP (10 MG) 10 MG/SUPP.RECT SUPP.RECT RC PRN (15:30)
[2023-04-30] MEDS ORDERED: ACETAMINOPHEN 325 MG TABLET MC PRN (15:30)
[2023-04-30 15:46] LABS: ADD URINE CULTURE NO; BACTERIA,URINE None seen /HPF (None Seen); SQUAMOUS EPITHELIAL CELL,UR 0-2 /HPF (None Seen); WBC,URINE 0-2 /HPF (0-3)
[2023-04-30 15:47] LABS: MUCUS,URINE Many /LPF (None Seen)
[2023-04-30 15:50] LABS: BAND % (MANUAL) 7 % (0.0-5.0); LYMPHOCYTES % (MANUAL) 2 % (16-48); MONOCYTES % (MANUAL) 1 % (0-11.0); NEUTROPHILS % (MANUAL) 90 (42-76); PLATELET ESTIMATE DECREASED
[2023-04-30 15:51] LABS: ANISOCYTOSIS 1+; ROULEAUX 1+
[2023-04-30] MEDS ORDERED: IV NS 0.9% 500 ML BAG IV ONE (16:30)
[2023-04-30] MEDS ORDERED: NOREPINEPHRINE 8 MG in IV NS 0.9% 250 ML IV ONE (16:30)
[2023-04-30] MEDS ORDERED: NOREPINEPHRINE 8 MG in IV NS 0.9% 250ML IV PRN (17:00)
[2023-04-30] MEDS ORDERED: GABAPENTIN 100 MG CAPSULE ONE (18:02)
[2023-04-30] MEDS ORDERED: risperiDONE 1 MG TABLET ONE (18:03)
[2023-04-30] MEDS: GABAPENTIN 100 MG CAPSULE GT SCH (18:10)
[2023-04-30] MEDS: risperiDONE 1 MG TABLET PO SCH (18:10)
[2023-04-30] MEDS: NOREPINEPHRINE 8 MG in IV NS 0.9% 242 ML IV PRN (20:26)
[2023-04-30] MEDS: ENOXAPARIN SODIUM 40 MG/0.4 ML DISP.SYRIN SQ SCH (21:33)
[2023-04-30] MEDS: IV NS 0.9% 1,000 ML IV PRN (21:37)
[2023-04-30] MEDS: ZOSYN IVPB 3.375 G in IV D5W 50ml IV SCH (23:31)
[2023-05-01] VITALS (51 sets, daily range): BP systolic 88–140; BP diastolic 62–122; TEMP 96.8–98; O2SAT 93–100
[2023-05-01] MEDS: VANCOMYCIN HCL 0.75 GM in IV D5W 250 ML IV SCH ×2 (02:02→15:00)
[2023-05-01] MEDS: NOREPINEPHRINE 8 MG in IV NS 0.9% 242 ML IV PRN ×2 (03:06→14:21)
[2023-05-01 05:04] LABS: BASOPHILS % (AUTO) 0.2 % (0.0-2.0); EOSINOPHILS % (AUTO) 0.3 % (0.0-6.0); HEMATOCRIT 33 % (39-51); HEMOGLOBIN 10.7 g/dL (13.5-17.5); LYMPHOCYTES # (AUTO) 1.4 K/uL (0.8-4.8); LYMPHOCYTES % (AUTO) 14.7 % (20.0-44.0); MEAN CORPUSCULAR HEMOGLOBIN 32 PG (26.0-33.0); MEAN CORPUSCULAR HGB CONC 33 g/dl (31.0-36.0); MEAN CORPUSCULAR VOLUME 99 fL (80-96); MONOCYTES # (AUTO) 0.3 K/uL (0.1-1.30); MONOCYTES % (AUTO) 3.4 % (2.0-12.0); NEUTROPHILS # (AUTO) 7.9 K/uL (1.8-8.9); NEUTROPHILS % (AUTO) 81.4 % (43.0-81.0); PLATELET COUNT (AUTO) 81 K/uL (150-450); RED BLOOD CELL COUNT(AUTO) 3.32 MIL/uL (4.5-6.0); RED CELL DISTRIBUTION WIDTH 16.3 % (11.5-15.0); WHITE BLOOD COUNT (AUTO) 9.7 K/uL (4.3-11.0)
[2023-05-01 05:24] LABS: CALCIUM, SERUM 7.7 mg/dL (8.5-10.1); CREATININE 0.6 mg/dL (0.6-1.3); MAGNESIUM 1.8 mg/dL (1.8-2.4)
[2023-05-01 05:26] LABS: POTASSIUM 2.8 mmol/L (3.5-5.1)
[2023-05-01] MEDS: ZOSYN IVPB 3.375 G in IV D5W 50ml IV SCH ×4 (05:35→23:21)
[2023-05-01] MEDS ORDERED: MAG HYDROX/AL HYDROX/SIMETH 30 ML UDC GT PRN (06:22)
[2023-05-01] MEDS ORDERED: MAGNESIUM HYDROXIDE 30 ML UDC GT PRN (06:22)
[2023-05-01] MEDS ORDERED: ACETAMINOPHEN 650 MG/20.3 ML UDC GT PRN (06:30)
[2023-05-01] MEDS: POTASSIUM CL. PREMIX PERIPHER. 50 ML IV SCH ×4 (07:40→10:56)
[2023-05-01] MEDS: GLUCERNA 1.2 1,000 ML BOTTLE NG PRN (08:57)
[2023-05-01] MEDS: risperiDONE 1 MG TABLET PO SCH ×2 (09:34→18:18)
[2023-05-01] MEDS: ASPIRIN 81 MG TAB.CHEW GT SCH (09:34)
[2023-05-01] MEDS: GABAPENTIN 100 MG CAPSULE GT SCH ×2 (09:34→18:18)
[2023-05-01] MEDS: PROSOURCE / PROSTAT (PYXIS) 30 ML UDC GT SCH ×3 (09:34→18:19)
[2023-05-01] MEDS: LIDOCAINE 5% (PATCH) 1 EA PATCH TP SCH (09:46)
[2023-05-01] MEDS: CLOTRIMAZOLE 1% 15 GM TUBE TP SCH (09:47)
[2023-05-01] MEDS: IV NS 0.9% 1,000 ML IV PRN ×2 (10:18→23:19)
[2023-05-01 11:56] LABS: ANISOCYTOSIS 1+; BASOPHILS % (MANUAL) 0 % (0.0-2.0); EOSINOPHILS % (MANUAL) 0 % (0-4); LYMPHOCYTES % (MANUAL) 11 % (16-48); MONOCYTES % (MANUAL) 6 % (0-11.0); NEUTROPHILS % (MANUAL) 83 (42-76); PLATELET ESTIMATE DECREASED
[2023-05-01] MEDS: ENOXAPARIN SODIUM 40 MG/0.4 ML DISP.SYRIN SQ SCH (20:32)
[2023-05-02] VITALS (55 sets, daily range): BP systolic 87–118; BP diastolic 61–78; TEMP 97–97.8; O2SAT 93–100
[2023-05-02 03:53] LABS: BASOPHILS % (AUTO) 0.3 % (0.0-2.0); EOSINOPHILS % (AUTO) 0.8 % (0.0-6.0); HEMATOCRIT 31 % (39-51); HEMOGLOBIN 10.1 g/dL (13.5-17.5); LYMPHOCYTES # (AUTO) 0.6 K/uL (0.8-4.8); LYMPHOCYTES % (AUTO) 14.1 % (20.0-44.0); MEAN CORPUSCULAR HEMOGLOBIN 32 PG (26.0-33.0); MEAN CORPUSCULAR HGB CONC 33 g/dl (31.0-36.0); MEAN CORPUSCULAR VOLUME 99 fL (80-96); MONOCYTES # (AUTO) 0.2 K/uL (0.1-1.30); MONOCYTES % (AUTO) 4.9 % (2.0-12.0); NEUTROPHILS # (AUTO) 3.7 K/uL (1.8-8.9); NEUTROPHILS % (AUTO) 79.9 % (43.0-81.0); PLATELET COUNT (AUTO) 65 K/uL (150-450); RED BLOOD CELL COUNT(AUTO) 3.16 MIL/uL (4.5-6.0); RED CELL DISTRIBUTION WIDTH 15.9 % (11.5-15.0); WHITE BLOOD COUNT (AUTO) 4.6 K/uL (4.3-11.0)
[2023-05-02 04:10] LABS: CALCIUM, SERUM 7.8 mg/dL (8.5-10.1); CREATININE 0.4 mg/dL (0.6-1.3); POTASSIUM 3.4 mmol/L (3.5-5.1)
[2023-05-02] MEDS: VANCOMYCIN HCL 0.75 GM in IV D5W 250 ML IV SCH ×2 (04:20→15:16)
[2023-05-02] MEDS: ZOSYN IVPB 3.375 G in IV D5W 50ml IV SCH ×4 (05:18→23:26)
[2023-05-02] MEDS ORDERED: IV NS 0.9% 250 ML IV PRN (06:30)
[2023-05-02] MEDS: NOREPINEPHRINE 8 MG in IV NS 0.9% 242 ML IV PRN (07:22)
[2023-05-02] MEDS: PROSOURCE / PROSTAT (PYXIS) 30 ML UDC GT SCH ×3 (08:22→16:13)
[2023-05-02] MEDS: LIDOCAINE 5% (PATCH) 1 EA PATCH TP SCH (08:22)
[2023-05-02] MEDS: POTASSIUM CL. PREMIX PERIPHER. 50 ML IV SCH ×4 (08:22→11:30)
[2023-05-02] MEDS: CLOTRIMAZOLE 1% 15 GM TUBE TP SCH ×2 (08:23→08:35)
[2023-05-02] MEDS: ASPIRIN 81 MG TAB.CHEW GT SCH (08:23)
[2023-05-02] MEDS: GABAPENTIN 100 MG CAPSULE GT SCH ×2 (08:23→16:12)
[2023-05-02] MEDS: risperiDONE 1 MG TABLET PO SCH ×2 (08:24→16:13)
[2023-05-02] MEDS: IV NS 0.9% 1,000 ML IV PRN ×2 (12:09→23:52)
[2023-05-02] MEDS: HYDROCORTISONE SOD SUCCINATE 100 MG/2 ML VIAL IV SCH ×2 (12:36→21:13)
[2023-05-02 12:44] LABS: LYMPHOCYTES % (MANUAL) 12 % (16-48); MONOCYTES % (MANUAL) 7 % (0-11.0); NEUTROPHILS % (MANUAL) 81 (42-76)
[2023-05-02 12:45] LABS: BASOPHILS % (MANUAL) 0 % (0.0-2.0); EOSINOPHILS % (MANUAL) 0 % (0-4)
[2023-05-02 12:46] LABS: ANISOCYTOSIS 1+; PLATELET ESTIMATE DECREASED
[2023-05-02] MEDS: GLUCERNA 1.2 1,000 ML BOTTLE NG PRN (16:28)
[2023-05-02] MEDS ORDERED: LOPERAMIDE HCL (2 MG CAP) 2 MG CAPSULE GT PRN (16:30)
[2023-05-02] MEDS: ENOXAPARIN SODIUM 40 MG/0.4 ML DISP.SYRIN SQ SCH (21:00)
[2023-05-03] VITALS (24 sets, daily range): BP systolic 88–117; BP diastolic 60–77; TEMP 97–98.2; O2SAT 97–100
[2023-05-03] MEDS: VANCOMYCIN HCL 0.75 GM in IV D5W 250 ML IV SCH (03:20)
[2023-05-03 04:12] LABS: BASOPHILS % (AUTO) 0.1 % (0.0-2.0); HEMATOCRIT 32 % (39-51); HEMOGLOBIN 10.6 g/dL (13.5-17.5); LYMPHOCYTES # (AUTO) 0.3 K/uL (0.8-4.8); LYMPHOCYTES % (AUTO) 12.5 % (20.0-44.0); MEAN CORPUSCULAR HEMOGLOBIN 32 PG (26.0-33.0); MEAN CORPUSCULAR HGB CONC 33 g/dl (31.0-36.0); MEAN CORPUSCULAR VOLUME 98 fL (80-96); MONOCYTES # (AUTO) 0.1 K/uL (0.1-1.30); MONOCYTES % (AUTO) 3.2 % (2.0-12.0); NEUTROPHILS # (AUTO) 1.9 K/uL (1.8-8.9); NEUTROPHILS % (AUTO) 84.2 % (43.0-81.0); PLATELET COUNT (AUTO) 65 K/uL (150-450); RED CELL DISTRIBUTION WIDTH 15.8 % (11.5-15.0); WHITE BLOOD COUNT (AUTO) 2.3 K/uL (4.3-11.0)
[2023-05-03 04:26] LABS: CALCIUM, SERUM 7.8 mg/dL (8.5-10.1); CREATININE 0.5 mg/dL (0.6-1.3); MAGNESIUM 1.9 mg/dL (1.8-2.4); PHOSPHORUS 3.6 mg/dL (2.5-4.9); POTASSIUM 3.7 mmol/L (3.5-5.1)
[2023-05-03] MEDS: HYDROCORTISONE SOD SUCCINATE 100 MG/2 ML VIAL IV SCH ×3 (04:29→21:33)
[2023-05-03] MEDS: ZOSYN IVPB 3.375 G in IV D5W 50ml IV SCH (05:55)
[2023-05-03] MEDS: ASPIRIN 81 MG TAB.CHEW GT SCH (08:02)
[2023-05-03] MEDS: GABAPENTIN 100 MG CAPSULE GT SCH ×2 (08:02→16:54)
[2023-05-03] MEDS: risperiDONE 1 MG TABLET PO SCH ×2 (08:03→16:54)
[2023-05-03 08:59] LABS: ANISOCYTOSIS 1+; BASOPHILS % (MANUAL) 0 % (0.0-2.0); EOSINOPHILS % (MANUAL) 0 % (0-4); LYMPHOCYTES % (MANUAL) 14 % (16-48); MONOCYTES % (MANUAL) 5 % (0-11.0); NEUTROPHILS % (MANUAL) 81 (42-76); PLATELET ESTIMATE DECREASED
[2023-05-03] MEDS: CLOTRIMAZOLE 1% 15 GM TUBE TP SCH (09:09)
[2023-05-03] MEDS: PROSOURCE / PROSTAT (PYXIS) 30 ML UDC GT SCH ×3 (09:13→16:54)
[2023-05-03] MEDS: LIDOCAINE 5% (PATCH) 1 EA PATCH TP SCH (09:14)
[2023-05-03] MEDS: PIPERACILLIN /TAZOBACTAM 3.375 G in IV D5W 100 ML IV SCH ×2 (12:13→21:33)
[2023-05-03] MEDS: IV NS 0.9% 1,000 ML IV PRN (12:50)
[2023-05-03] MEDS: VANCOMYCIN 1 GM in IV D5W 250 ML IV SCH (14:43)
[2023-05-03] MEDS: GLUCERNA 1.2 1,000 ML BOTTLE NG PRN (17:51)
[2023-05-04] VITALS: BP 101/74; TEMP 98.1; O2SAT 100
[2023-05-04 01:00] VITALS: BP 99/69; O2SAT 97
[2023-05-04 02:00] VITALS: BP 101/69; O2SAT 98
[2023-05-04] MEDS: VANCOMYCIN 1 GM in IV D5W 250 ML IV SCH ×2 (02:00→16:04)
[2023-05-04] MEDS: IV NS 0.9% 1,000 ML IV PRN ×2 (02:19→19:57)
[2023-05-04 03:00] VITALS: BP 121/71; O2SAT 97
[2023-05-04 04:00] VITALS: BP 113/69; TEMP 98.1; O2SAT 98
[2023-05-04] MEDS: PIPERACILLIN /TAZOBACTAM 3.375 G in IV D5W 100 ML IV SCH ×3 (04:16→20:40)
[2023-05-04] MEDS: HYDROCORTISONE SOD SUCCINATE 100 MG/2 ML VIAL IV SCH ×3 (04:16→16:29)
[2023-05-04 04:32] LABS: CALCIUM, SERUM 7.8 mg/dL (8.5-10.1); CREATININE 0.5 mg/dL (0.6-1.3); POTASSIUM 3.6 mmol/L (3.5-5.1)
[2023-05-04] MEDS: risperiDONE 1 MG TABLET PO SCH ×2 (08:56→16:11)
[2023-05-04] MEDS: LIDOCAINE 5% (PATCH) 1 EA PATCH TP SCH (08:56)
[2023-05-04] MEDS: GABAPENTIN 100 MG CAPSULE GT SCH ×2 (08:56→16:12)
[2023-05-04] MEDS: CLOTRIMAZOLE 1% 15 GM TUBE TP SCH (08:57)
[2023-05-04] MEDS: ASPIRIN 81 MG TAB.CHEW GT SCH (08:57)
[2023-05-04] MEDS: PROSOURCE / PROSTAT (PYXIS) 30 ML UDC GT SCH ×3 (09:06→16:12)
[2023-05-04] MEDS: GLUCERNA 1.2 1,000 ML BOTTLE NG PRN (19:43)
[2023-05-04 20:00] VITALS: BP 124/84; TEMP 97.7; O2SAT 99
[2023-05-05] MEDS: VANCOMYCIN 1 GM in IV D5W 250 ML IV SCH ×2 (03:46→15:00)
[2023-05-05] MEDS: PIPERACILLIN /TAZOBACTAM 3.375 G in IV D5W 100 ML IV SCH ×2 (05:15→13:05)
[2023-05-05 08:00] VITALS: BP 121/76; TEMP 98.6; O2SAT 99
[2023-05-05] MEDS: LIDOCAINE 5% (PATCH) 1 EA PATCH TP SCH (08:18)
[2023-05-05] MEDS: PROSOURCE / PROSTAT (PYXIS) 30 ML UDC GT SCH ×2 (08:19→11:49)
[2023-05-05] MEDS: GABAPENTIN 100 MG CAPSULE GT SCH (08:19)
[2023-05-05] MEDS: risperiDONE 1 MG TABLET PO SCH (08:19)
[2023-05-05] MEDS: ASPIRIN 81 MG TAB.CHEW GT SCH (08:19)
[2023-05-05] MEDS: HYDROCORTISONE SOD SUCCINATE 100 MG/2 ML VIAL IV SCH (08:20)
[2023-05-05] MEDS: CLOTRIMAZOLE 1% 15 GM TUBE TP SCH (08:48)
[2023-05-05 08:50] LABS: BASOPHILS % (AUTO) 0.3 % (0.0-2.0); EOSINOPHILS % (AUTO) 0.3 % (0.0-6.0); HEMATOCRIT 35 % (39-51); HEMOGLOBIN 11.3 g/dL (13.5-17.5); LYMPHOCYTES # (AUTO) 0.6 K/uL (0.8-4.8); LYMPHOCYTES % (AUTO) 17.5 % (20.0-44.0); MEAN CORPUSCULAR HEMOGLOBIN 32 PG (26.0-33.0); MEAN CORPUSCULAR HGB CONC 33 g/dl (31.0-36.0); MEAN CORPUSCULAR VOLUME 98 fL (80-96); MONOCYTES # (AUTO) 0.3 K/uL (0.1-1.30); MONOCYTES % (AUTO) 10.1 % (2.0-12.0); NEUTROPHILS # (AUTO) 2.4 K/uL (1.8-8.9); NEUTROPHILS % (AUTO) 71.8 % (43.0-81.0); PLATELET COUNT (AUTO) 60 K/uL (150-450); RED BLOOD CELL COUNT(AUTO) 3.53 MIL/uL (4.5-6.0); RED CELL DISTRIBUTION WIDTH 15.5 % (11.5-15.0); WHITE BLOOD COUNT (AUTO) 3.3 K/uL (4.3-11.0)
[2023-05-05] MEDS ORDERED: FURO40TA5 GT (09:10)
[2023-05-05] MEDS ORDERED: LEVO500T90 PO (09:10)
[2023-05-05] MEDS ORDERED: PRED50TA PO (09:10)
[2023-05-05 09:30] LABS: CREATININE 0.7 mg/dL (0.6-1.3); POTASSIUM 3.2 mmol/L (3.5-5.1)
[2023-05-05] MEDS ORDERED: HYDROCORTISONE SOD SUCCINATE 100 MG/2 ML VIAL IV SCH (10:30)
[2023-05-05] MEDS ORDERED: THERAHONEY GEL 1.5 OZ TUBE TP SCH (11:30)
[2023-05-05 12:37] LABS: ANISOCYTOSIS 1+; BASOPHILS % (MANUAL) 0 % (0.0-2.0); EOSINOPHILS % (MANUAL) 0 % (0-4); LYMPHOCYTES % (MANUAL) 15 % (16-48); MONOCYTES % (MANUAL) 12 % (0-11.0); NEUTROPHILS % (MANUAL) 73 (42-76); PLATELET ESTIMATE DECREASED
== END 2023-05-05 15:20 | DRG 720 ==
LOC: ER 13:36 → ICU 18:51 → TELE 05-04 04:31 → MED 05-04 10:04
PROVIDERS: ADMIT Internal Medicine; ATTEND Internal Medicine
PROC: 02HV33Z Insertion of Infusion Device into Superior Vena Cava, Percutaneous Approach (ICD-10-PCS; principal; 2023-04-30)
PROC: B548ZZA Ultrasonography of Superior Vena Cava, Guidance (ICD-10-PCS; 2023-04-30)
DX: A41.9 Sepsis, unspecified organism (principal); J96.01 Acute respiratory failure with hypoxia; J69.0 Pneumonitis due to inhalation of food and vomit; G93.41 Metabolic encephalopathy; R65.21 Severe sepsis with septic shock; R57.1 Hypovolemic shock; E87.20 Acidosis, unspecified; E43 Unspecified severe protein-calorie malnutrition; J15.6 Pneumonia due to other Gram-negative bacteria; L89.153 Pressure ulcer of sacral region, stage 3; D69.6 Thrombocytopenia, unspecified; E27.40 Unspecified adrenocortical insufficiency; E88.09 Other disorders of plasma-protein metabolism, not elsewhere classified; J44.0 Chronic obstructive pulmonary disease with (acute) lower respiratory infection; I10 Essential (primary) hypertension; F20.9 Schizophrenia, unspecified; E87.6 Hypokalemia; G62.9 Polyneuropathy, unspecified; K21.9 Gastro-esophageal reflux disease without esophagitis; R13.10 Dysphagia, unspecified; Z79.82 Long term (current) use of aspirin; Z87.01 Personal history of pneumonia (recurrent); Z93.1 Gastrostomy status; J44.1 Chronic obstructive pulmonary disease with (acute) exacerbation; Z68.24 Body mass index [BMI] 24.0-24.9, adult
CPT/HCPCS: 31720; 36415; 71045-TC; 80048-TC; 80076-TC; 80202-TC; 81001; 82533; 83605-TC; 83735-TC; 84100-TC; 84484-TC; 85025-TC; 85730-TC; 87040-TC; 87086-TC; 93970-TC; 94799-TC; A4223; G0378; J1650; J1720; J2543; J3370; J3480; J7030; J7040; J7050; J7060